=== PATIENT | male | born 1990 | race Caucasian/White ===

== ENCOUNTER 2017-10-01 16:24 | Emergency (ER) | payer MEDICAID, OTHER ==
[~2017-10-01] VITALS: Ht 170.2 cm; Wt 70.8 kg
[2017-10-01] MEDS ORDERED: SODIUM CHLORIDE FLUSH 10ML SYR IVF ONE ×2 (17:00→17:30)
[2017-10-01 17:09] LABS: BASOPHILS # (AUTO) 0.05 x10^3/uL (0-0.1); BASOPHILS % (AUTO) 1 % (0-1); EOSINOPHILS # (AUTO) 0.13 x10^3/uL (0-0.4); EOSINOPHILS % (AUTO) 2 % (1-7); LYMPHOCYTES # (AUTO) 2.61 x10^3/uL (1-3.4); LYMPHOCYTES % (AUTO) 36 % (22-44); MD NO; MEAN CORPUSCULAR HEMOGLOBIN 31.8 pg (27.5-34.5); MEAN CORPUSCULAR HGB CONC 34.1 g/dL (33.2-36.2); MEAN CORPUSCULAR VOLUME 93.4 fL (81-97); MEAN PLATELET VOLUME 7.5 fL (7.4-10.4); MONOCYTES # (AUTO) 0.46 x10^3/uL (0.2-0.8); MONOCYTES % (AUTO) 6 % (2-9); NEUTROPHILS # (AUTO) 4.03 x10^3/uL (1.8-6.8); NEUTROPHILS % (AUTO) 55 % (42-75); PLATELET COUNT 351 x10^3/uL (130-400); RED BLOOD COUNT 5.56 x10^6/uL (4.38-5.82); RED CELL DISTRIBUTION WIDTH 12.1 % (9.4-14.8)
[2017-10-01] MEDS ORDERED: SODIUM CHLORIDE 0.9% 1,000 ML IV ONE (17:13)
[2017-10-01 17:21] LABS: ALBUMIN 4.6 g/dL (3.4-5.0); ANION GAP 8 mmol/L (5-15); CALCIUM 9.5 mg/dL (8.5-10.1); CHLORIDE 104 mmol/L (98-107); CREATININE 1.22 mg/dL (0.7-1.3)
[2017-10-01 17:30] LABS: FREE T4 (FREE THYROXINE) 1.46 ng/dL (0.76-1.46)
[2017-10-01] MEDS ORDERED: LORazepam 2 MG/ML, 1ML IVPush ONE (17:30)
[2017-10-01] MEDS ORDERED: LORazepam 2 MG/ML, 1ML ONE (17:38)
[2017-10-01 17:41] LABS: TROPONIN I < 0.015 ng/mL (0.000-0.045)
[2017-10-01] MEDS ORDERED: OMNIPAQUE 350 MG/ML, 100ML BOTTLE ONE (17:52)
[2017-10-01 19:27] VITALS: BP 118/74
== END 2017-10-01 19:31 | disposition home or self-care (01) ==
LOC: ED 18:51
DX: R00.2 Palpitations (principal); G43.909 Migraine, unspecified, not intractable, without status migrainosus; J45.909 Unspecified asthma, uncomplicated
CPT/HCPCS: 36415; 71046; 71275; 80048; 82040; 83880; 84439; 84443; 84484; 85025; 93005; 96361; 96374; 99285; J2060; J7030; Q9967

== ENCOUNTER → 2017-10-03 | Outpatient (CLI) | payer OTHER | END | disposition home or self-care (01) | LOC: CVU 11:05 | PROVIDERS: ATTEND Internal Medicine Cardiovascular Disease | DX: R07.89 Other chest pain (principal); R06.02 Shortness of breath; R00.2 Palpitations | CPT/HCPCS: 93306 ==

== ENCOUNTER 2020-05-17 09:11 | Emergency (ER) | payer OTHER ==
[~2020-05-17] VITALS: Ht 170.2 cm; Wt 73.8 kg
[2020-05-17 09:16] VITALS: BP 134/79
[2020-05-17] MEDS ORDERED: KETOROLAC 30 MG/1 ML ONE (09:55)
[2020-05-17] MEDS ORDERED: METHOCARBAMOL 750 MG TABLET ONE (09:55)
[2020-05-17] MEDS ORDERED: METHOCARBAMOL 750 MG TABLET PO ONE (10:00)
[2020-05-17] MEDS ORDERED: KETOROLAC 30 MG/1 ML IM ONE (10:00)
--- NOTE | 2020-05-17 10:00 | NUR ---
PT TO XRAY.
--- NOTE | 2020-05-17 11:25 | NUR ---
Patient given discharge instructions AND RX and they have confirmed that they understand the instructions. Patient ambulatory with steady gait.
== END 2020-05-17 11:25 | disposition home or self-care (01) ==
LOC: ED 10:51
DX: S39.012A Strain of muscle, fascia and tendon of lower back, initial encounter (principal); S16.1XXA Strain of muscle, fascia and tendon at neck level, initial encounter; R07.89 Other chest pain; J45.909 Unspecified asthma, uncomplicated; V49.9XXA Car occupant (driver) (passenger) injured in unspecified traffic accident, initial encounter; Y93.89 Activity, other specified; Y92.488 Other paved roadways as the place of occurrence of the external cause; Y99.8 Other external cause status
CPT/HCPCS: 71101; 72020; 72050; 72080; 96372; 99284; J1885

== ENCOUNTER 2021-05-28 09:40 | Emergency (ER) | payer OTHER ==
[~2021-05-28] VITALS: Ht 170.2 cm; Wt 69.0 kg
--- NOTE | 2021-05-28 10:08 | NUR ---
PT. IS A & O X 4 WITH C/O CHEST PAIN AND DIFFICULTY BREATHING X 2 WEEKS. PT. HAS THE CP MONITOR IN PLACE. PT.'S LUNGS ARE CTA THROUGHOUT. MM ARE MOIST WITH PULSES +2 THROUGHOUT. PT.'S ABD. IS SOFT AND FLAT WITH BS + X 4 QUADS. PT. MOVES ALL EXTREMITIES WNL. CP MONITOR IS IN PLACE AND PT.'S 12 LEAD EKG WAS DONE. PT. IS RESTING WITH CALL LIGHT IN PLACE.
[2021-05-28 11:06] LABS: BASOPHILS % (AUTO) 1 % (0-1); EOSINOPHILS % (AUTO) 3 % (1-7); LYMPHOCYTES % (AUTO) 39 % (22-44); MEAN CORPUSCULAR HEMOGLOBIN 32.3 pg (27.5-34.5); MEAN CORPUSCULAR HGB CONC 34.4 g/dL (33.2-36.2); MEAN PLATELET VOLUME 7.1 fL (7.4-10.4); MONOCYTES % (AUTO) 8 % (2-9); NEUTROPHILS % (AUTO) 50 % (42-75); PLATELET COUNT 329 x10^3/uL (130-400); RED BLOOD COUNT 4.75 x10^6/uL (4.38-5.82); RED CELL DISTRIBUTION WIDTH 12.6 % (9.4-14.8)
[2021-05-28 11:18] LABS: ALANINE AMINOTRANSFERASE 25 U/L (12-78); ALBUMIN 4.2 g/dL (3.4-5.0); ANION GAP 3 mmol/L (5-15); CALCIUM 8.8 mg/dL (8.5-10.1); CHLORIDE 110 mmol/L (98-107); CREATININE 0.99 mg/dL (0.7-1.3)
[2021-05-28 11:22] LABS: ALKALINE PHOSPHATASE 84 U/L (45-117); BILIRUBIN,TOTAL 0.7 mg/dL (0.2-1.0); TOTAL PROTEIN 7.7 g/dL (6.4-8.2); TROPONIN I < 0.015 ng/mL (0.000-0.045)
--- NOTE | 2021-05-28 12:08 | NUR ---
PT. IS RESTING WITHOUT CONCERNS.
--- NOTE | 2021-05-28 13:05 | NUR ---
PT. WAS GIVEN DISCHARGE INSTRUCTIONS WITH UNDERSTANDING VERBALIZED. PT. WAS AMBULATORY TO THE DISCHARGE DESK WITH A STEADY GAIT. -
[2021-05-28 13:06] VITALS: BP 117/76
== END 2021-05-28 13:02 ==
LOC: ED 11:05
DX: R07.89 Other chest pain (principal); J45.909 Unspecified asthma, uncomplicated
CPT/HCPCS: 36415; 71045; 80053; 84484; 85025; 93005; 99285